=== PATIENT | female | born 1985 | race African-American/Black ===

== ENCOUNTER 2023-01-15 14:00 | Outpatient (CLI) | payer OTHER, SELFPAY ==
[2023-01-15 15:39] LABS: SARS-CoV-2 RNA PCR Negative (Negative)
== END 2023-01-15 14:01 | disposition home or self-care (01) ==
PROVIDERS: PCP Family Medicine; Visit Provider Family Medicine
DX: Z20.822 Contact with and (suspected) exposure to COVID-19 (principal)
CPT/HCPCS: 87635

== ENCOUNTER 2023-04-19 12:03 | Emergency (ER) | payer OTHER, SELFPAY ==
[2023-04-19 12:32] VITALS: BP 142/80; PULSE 91; RESP 20; TEMP 36.3; O2SAT 99
--- NOTE | 2023-04-19 13:23 | ED.URI ---
HPI - URI/Sore Throat General Chief Complaint: Upper Respiratory Infection Stated Complaint: sinus pressure,cough Time Seen by Provider: 04/19/23 12:26 Source: patient Mode of arrival: ambulatory Limitations: no limitations History of Present Illness HPI Narrative: 37-year-old female presents to [facility] with complaints of left-sided sinus pressure, nasal congestion, headache and dry cough for the past 6 weeks. Patient has not tried taking any [id number] medications for symptoms. Patient is a nonsmoker. Patient denies recent travel. Patient's children are currently ill with cold-like symptoms. Patient denies fever, body aches, chills, nausea vomiting, diarrhea, shortness of breath or wheezing. MD elicited complaint: rhinorrhea, nasal congestion and sinus pain Onset (ago): week(s) (6) Able to tolerate fluids by mouth: Yes Exacerbating factors: nothing Relieving factors: nothing Context: sick contacts Treatments prior to arrival: none Related Data Home Medications Medication Instructions Recorded Confirmed sertraline 200 mg capsule 200 mg PO DAILY 01/21/23 04/19/23 sertraline 50 mg tablet 50 mg PO DAILY 01/21/23 04/19/23 trazodone 150 mg tablet 150 mg PO QHS 01/21/23 04/19/23 Allergies Allergy/AdvReac Type Severity Reaction Status Date / Time No Known Allergies Allergy Verified 04/19/23 12:40 Review of Systems Constitutional: Constitutional: Denies fatigue, Denies fever(s) and Denies weakness ENT: Denies dizziness, Denies epistaxis, Reports nasal congestion and Denies sore throat Comments: Sinus pressure Cardiovascular: Cardiovascular: Denies chest pain Respiratory: Respiratory: Reports cough, Denies dyspnea and Denies wheezing Gastrointestinal: Gastrointestinal: Denies diarrhea, Denies nausea and Denies vomiting Neurologic: Denies dizziness, Denies syncope and Reports headache(s) PMFSH Past Medical History Medical History Anxiety Asthma Depression Diabetes mellitus Hx of migraines Morbid obesity Surgical History Surgical History Hx of knee surgery Hx of tonsillectomy Previous section x4 Family History Family History Mother Carcinoma of colon, Onset Age: 50 Other Alcoholism Anxiety Diabetes mellitus Hodgkins disease Ovarian cancer Social History Social History Smoking status: Never smoker Second hand tobacco smoke exposure: No Alcohol intake: never Substance use: never Substance use type: does not use Lack of Transportation: No Lack of Food: Never True Current Housing: I Have Housing Concerned About Future Housing: No Difficulty Paying Gas/Electric Bills: No Difficulty Paying for Meds: No Currently Unemployed: No Education: High School Diploma/GED Difficulty w/ Childcare or Family Care: No Living arrangements: with family Occupation/Education: unemployed Gender identity (if verbalized by the patient): Female Sexual Orientation (if Verbalized by the Patient): Straight or Heterosexual Spiritual care concerns: No Agree to blood products: No Comments At time of signature, I agree with nursing past medical, surgical, social and family history. There is no relevant family history pertinent to the presenting complaint. Exam Const: General: healthy appearing and no acute distress Nutritional Appearance: well nourished Orientation/consciousness: patient oriented x3 Limitations: no limitations HENMT: Head: normal to inspection Ears: external ears normal, TM's normal bilaterally and EAC's normal Face and sinus: sinus tenderness frontal (Left-sided) Throat: posterior oropharynx normal and uvula midline Other: Nasal congestion noted to left Eyes: Conjunctivae: conjunctivae normal Resp: Effo
== END 2023-04-19 13:30 | disposition home or self-care (01) ==
PROVIDERS: Emergency Provider Nurse Practitioner Family; PCP Physician Assistant
DX: J01.90 Acute sinusitis, unspecified (principal); J45.909 Unspecified asthma, uncomplicated; E11.9 Type 2 diabetes mellitus without complications; E66.01 Morbid (severe) obesity due to excess calories; Z68.45 Body mass index [BMI] 70 or greater, adult; F41.9 Anxiety disorder, unspecified; F32.A Depression, unspecified
CPT/HCPCS: 99213; G0463

== ENCOUNTER 2023-04-23 15:49 | Emergency (ER) | payer OTHER, SELFPAY ==
--- NOTE | 2023-04-23 16:38 | ED.URI ---
HPI - URI/Sore Throat General Chief Complaint: Upper Respiratory Infection Stated Complaint: covid exposure Time Seen by Provider: 04/23/23 16:38 Source: patient and family Mode of arrival: ambulatory Limitations: no limitations History of Present Illness HPI Narrative: 37-year-old female With history of asthma, diabetes presents with complaint of cough, nasal congestion, fatigue, fever, body aches, headache for 4 days. Patient states she was here 4 days ago on the 1st day of symptoms starting and was given antibiotic for sinus infection. Patient states her came into day and was tested positive for COVID. Patient Now requesting COVID test. no chest pain or shortness of breath. all systems reviewed and negative except as noted above. Related Data Home Medications Medication Instructions Recorded Confirmed sertraline 200 mg capsule 300 mg PO DAILY 01/21/23 04/23/23 trazodone 150 mg tablet 150 mg PO QHS 01/21/23 04/23/23 Allergies Allergy/AdvReac Type Severity Reaction Status Date / Time No Known Allergies Allergy Verified 04/23/23 16:47 Review of Systems Review of Systems: CONSTITUTIONAL: reports fever, chills, or sweats. EYES: Denies visual changes, redness, or discharge. ENT: Reports rhinorrhea, congestion, sore throat. Denies otalgia. CARDIOVASCULAR: Denies chest pain, palpitations, or edema. RESPIRATORY: Denies cough or dyspnea. GASTROINTESTINAL: Denies abdominal pain, nausea, vomiting, or diarrhea. GENITOURINARY: Denies dysuria or hematuria. SKIN: Denies rash or itching. MUSCULOSKELETAL: Denies back pain, joint pain, or myalgia. NEUROLOGIC: reports headache. Denies numbness, or weakness. PSYCHIATRIC: Denies anxiety or depression. All other systems reviewed are negative, except as documented in HPI. [facility] Past Medical History Medical History Anxiety Asthma Depression Diabetes mellitus Hx of migraines Morbid obesity Surgical History Surgical History Hx of knee surgery Hx of tonsillectomy Previous section x4 Family History Family History Mother Carcinoma of colon, Onset Age: 50 Other Alcoholism Anxiety Diabetes mellitus Hodgkins disease Ovarian cancer Social History Social History Smoking status: Never smoker Second hand tobacco smoke exposure: No Alcohol intake: never Substance use: never Substance use type: does not use Lack of Transportation: No Lack of Food: Never True Current Housing: I Have Housing Concerned About Future Housing: No Difficulty Paying Gas/Electric Bills: No Difficulty Paying for Meds: No Currently Unemployed: No Education: High School Diploma/GED Difficulty w/ Childcare or Family Care: No Living arrangements: with family Occupation/Education: unemployed Gender identity (if verbalized by the patient): Female Sexual Orientation (if Verbalized by the Patient): Straight or Heterosexual Spiritual care concerns: No Agree to blood products: No Comments At time of signature, agree with nursing past medical, surgical, social and family history. There is no relevant family history pertinent to the presenting complaint. Exam Narrative: GENERAL: This is a well-nourished, well-developed patient, in no apparent distress. HEAD: normocephalic, atraumatic. EYES: PERRL. Sclera clear/white. Vision is grossly intact. EARS: External ears normal, auditory canals clear and without drainage, TMs normal without perforation. Hearing grossly intact. NOSE: External nose normal with clear nasal drainage THROAT: Mucous membranes moist, posterior pharynx clear. NECK: Neck supple, non-tender without lymphadenopathy, masses or thyromegaly. CARDIOVASCULAR: Regular rate and rhythm without murmurs, ga
[2023-04-23 16:47] VITALS: BP 128/77; PULSE 95; RESP 20; TEMP 35.9; O2SAT 97
[2023-04-23 16:48] VITALS: BP 128/77; PULSE 95; RESP 20; TEMP 35.9; O2SAT 97
== END 2023-04-23 17:17 | disposition home or self-care (01) ==
PROVIDERS: Emergency Provider Nurse Practitioner Family; PCP Physician Assistant
DX: U07.1 COVID-19 (principal); J45.909 Unspecified asthma, uncomplicated; E11.9 Type 2 diabetes mellitus without complications; E66.01 Morbid (severe) obesity due to excess calories; Z68.45 Body mass index [BMI] 70 or greater, adult; F41.9 Anxiety disorder, unspecified; F32.A Depression, unspecified
CPT/HCPCS: 87426; 99213; C9803; G0463

== ENCOUNTER 2023-07-23 12:53 | Emergency (ER) | payer OTHER, SELFPAY ==
--- NOTE | 2023-07-23 13:02 | ED.FEMALEGU ---
HPI - Female Genitourinary General Chief complaint: Back Pain/Injury Stated complaint: UTI symptoms Time Seen by Provider: 07/23/23 13:23 Source: patient and RN notes reviewed Mode of arrival: ambulatory Limitations: no limitations History of Present Illness HPI Narrative: 37-year-old female presents with concern for bilateral low back pain for 2.5 weeks. She reports dull throbbing back pain. She reports it worsens with certain positioning, she reports ibuprofen dulls the pain. She has been taking ibuprofen about twice daily. She denies weakness to any extremity, loss of bowel or bladder function, perianal anesthesia. She denies frequency, urgency, dysuria. Reports pain is 3/10. She denies fever, body aches, chills, sweats, nausea, vomiting, abdominal pain, diarrhea, constipation. Reports normal periods.. Her last menstrual period was recent. She reports a ?partial? tubal ligation. MD elicited complaint: back pain Related Data Home Medications Medication Instructions Recorded Confirmed dextroamphetamine-amphetamine 10 07/23/23 mg tablet sertraline 100 mg tablet mg 07/23/23 07/23/23 trazodone 150 mg tablet mg 07/23/23 Allergies Allergy/AdvReac Type Severity Reaction Status Date / Time No Known Allergies Allergy Verified 07/23/23 13:10 Review of Systems Review of Systems: CONSTITUTIONAL: Denies malaise, chills, sweats, or fever. CARDIOVASCULAR: Denies chest pain, palpitations, or edema. RESPIRATORY: Denies cough or dyspnea. GASTROINTESTINAL: Denies abdominal pain, nausea, vomiting, diarrhea GENITOURINARY: Reports dysuria, frequency, urgency, suprapubic pressure. Denies flank pain or hematuria. SKIN: Denies rash or itching. MUSCULOSKELETAL: Reports bilateral low back pain. Denies myalgia. All systems reviewed & are unremarkable except as noted in HPI and below PMFSH Past Medical History Medical History Anxiety Asthma Depression Diabetes mellitus Hx of migraines Morbid obesity Surgical History Surgical History Hx of knee surgery Hx of tonsillectomy Previous section x4 Family History Family History Mother Carcinoma of colon, Onset Age: 50 Other Alcoholism Anxiety Diabetes mellitus Hodgkins disease Ovarian cancer Social History Social History Smoking status: Never smoker Second hand tobacco smoke exposure: No Alcohol intake: never Substance use: never Substance use type: does not use Lack of Transportation: No Lack of Food: Never True Current Housing: I Have Housing Concerned About Future Housing: No Difficulty Paying Gas/Electric Bills: No Difficulty Paying for Meds: No Currently Unemployed: No Education: High School Diploma/GED Difficulty w/ Childcare or Family Care: No Living arrangements: with family Occupation/Education: unemployed Gender identity (if verbalized by the patient): Female Sexual Orientation (if Verbalized by the Patient): Straight or Heterosexual Spiritual care concerns: No Agree to blood products: No Comments At time of signature, agree with nursing past medical, surgical, social and family history. There is no relevant family history pertinent to the presenting complaint Exam Narrative: GENERAL: Well-appearing, well-nourished, and in no acute distress. HEAD: Normocephalic, atraumatic. EYES: PERRLA and EOMI. NECK: Supple. No lymphadenopathy. CHEST: Clear to auscultation. No respiratory distress. HEART: Regular rate and rhythm. Distal pulses palpable and equal, cap refill <3 seconds ABDOMEN: Morbidly obese, no CVA tenderness MUSCULOSKELETAL: Reports normal range of motion and strength in all extremities; 5/5 strength with hip flexion and exten
[2023-07-23 13:03] VITALS: BP 129/74; PULSE 82; RESP 18; TEMP 36.7; O2SAT 97
== END 2023-07-23 13:48 | disposition home or self-care (01) ==
PROVIDERS: Emergency Provider Nurse Practitioner; PCP Physician Assistant
DX: N39.0 Urinary tract infection, site not specified (principal); B95.1 Streptococcus, group B, as the cause of diseases classified elsewhere
CPT/HCPCS: 81003; 81025; 87077; 87086; 87088; 99213; G0463

== ENCOUNTER 2023-12-27 09:49 | Emergency (ER) | payer OTHER, SELFPAY ==
--- NOTE | ~2023-12-27 | XR_ITS ---
EXAMINATION: XR chest 1V DATE: 12/27/2023 12:52 INDICATION: Altered mental status. Epigastric abdominal pain. TECHNIQUE: A single frontal view of the chest was obtained. COMPARISON: CT abdomen and pelvis 12/27/2023 FINDINGS: There is no pneumonia, pleural effusion, or pneumothorax. The heart size is normal. IMPRESSION: 1. No acute cardiopulmonary disease. Reviewed, dictated and finalized at location A.
--- NOTE | ~2023-12-27 | CT_ITS ---
EXAMINATION: CT abdomen pelvis w con DATE: 12/27/2023 12:45 INDICATION: Epigastric and umbilical and abdominal pain. TECHNIQUE: Computed tomography (CT) of the abdomen and pelvis was performed with 100 mL Omnipaque-350 intravenous contrast. Automated exposure control and iterative reconstruction technique were employe d. The dose-length product was 1675.60 mGy-cm. COMPARISON: None FINDINGS: Lung bases are clear. Heart size is normal. No pericardial or pleural effusion. Diffuse hepatic steat osis. No intra or extra hepatic biliary ductal dilation. There are multiple gallstones within the nor mal nondilated gallbladder with no pericholecystic inflammatory stranding to suggest acute cholecysti tis. Spleen, pancreas, bilateral adrenal glands and left kidney are normal. 7 mm right renal cyst. Jorden wels including the appendix are normal. Bladder, anteverted uterus and bilateral adnexa are normal. M oderate-sized fat-containing umbilical hernia. No free intraperitoneal gas or fluid. No pathologicall y enlarged abdominal or pelvic lymphadenopathy. 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 IMPRESSION: 1. Cholelithiasis. 2. Diffuse hepatic steatosis. 3. Moderate-sized fat-containing umbilical hernia. Reviewed, dictated and finalized at location A.
--- NOTE | ~2023-12-27 | US_ITS ---
EXAMINATION: US abdomen limited DATE: 12/27/2023 14:44 INDICATION: Cholelithiasis. Epigastric pain. TECHNIQUE: Multiple grayscale and Doppler ultrasound images of the abdomen were obtained. COMPARISON: CT dated 12/27/2023 FINDINGS: The pancreatic head and body are normal in appearance. The pancreatic tail is not visualized. Liver has normal contour, with a smooth surface. There is increased parenchymal echogenicity and coarsened echotexture consistent with diffuse hepatic steatosis. No intrahepatic biliary duct dilation suspecte d. Portal venous flow was seen in the hepatopetal, normal direction and has normal Doppler waveform. There are multiple echogenic and shadowing gallstones in the normal nondilated gallbladder. Sonograph ic Chin sign was reported as negative by the associate professor of mathematics. The common bile duct measures 4 mm trini l diameter which is normal. IMPRESSION: 1. Cholelithiasis. 2. Diffuse hepatic steatosis. Reviewed, dictated and finalized at location A.
[2023-12-27 09:52] VITALS: BP 145/91; PULSE 75; RESP 17; TEMP 36.8; O2SAT 98
--- NOTE | 2023-12-27 09:56 | ECG_ITS ---
Test Date: 2023-12-27 10:01:37 Measurements Intervals [place] Rate: 71 P: 3 IA: 142 QRS: 25 QRSD: 82 T: 6 QT: 391 QTc: 428 Interpretive Statements SINUS RHYTHM NORMAL ECG No previous ECG available for comparison Electronically Signed On 12-27-2023 11:03:00 CDT by Toñito Boyce M.D.
[2023-12-27 10:37] VITALS: O2SAT 100
--- NOTE | 2023-12-27 10:43 | PC.NURSE ---
12/27/23 10:06 - Nurse Note by Sanjuana Vega RN Acct Num: [id number] : 07/08/1956 Patient Age: 67 Pt using aggressive speech with staff, demanding to know pt vital signs, demanding to see pt EKG & insisting staff interpret EKG for him. states Well, my mom is on her way up here and she's a doctor and she knows all of this! RN attempted to deescalate explaining the triage process, due to pt altered status she can not agree to allow us to give out information, when pt gets placed to exam room she will be on a monitor and he will be able to see all vitals. He became angry states I have a right, the pt is right here! Security ask to allow staff to do their job, not to get loud. 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 Initialized on 12/27/23 10:06 - END OF NOTE
[2023-12-27 10:51] VITALS: BP 139/101; PULSE 83; RESP 16; O2SAT 96
[2023-12-27 10:57] LABS: Basophils Percent Auto 0.3 % (0.2-1.2); Eosinophils Percent Auto 0.3 % (0-4.4); Hematocrit 38.4 % (37.0-47.0); Immature Granulocyte Absolute 0.02 K/mm3 (0.00-0.031); Immature Granulocyte Percent A 0.2 % (0-0.5); Lymphocytes Absolute Auto 1.73 K/mm3 (0.9-3.2); Lymphocytes Percent Auto 19.1 % (18.3-44.2); Mean Corpuscular HGB Conc 31.3 g/dl (32-36); Mean Corpuscular Hemoglobin 25.3 pg (26-34); Mean Corpuscular Volume 80.8 fl (80-100); Mean Platelet Volume 9.5 fl (7.4-10.4); Monocytes Absolute Auto 0.3 K/mm3 (0.1-0.6); Monocytes Percent Auto 3.7 % (2.6-8.5); Neutrophils Absolute Auto 6.9 K/mm3 (1.3-6.7); Neutrophils Percent Auto 76.4 % (45.5-73.1); Platelet Count Result 281 k/mm3 (150-375); Red Blood Count 4.75 M/mm3 (4.2-5.4); Red Cell Distribution Width 13.6 % (11.5-14.5); White Blood Count 9.1 K/mm3 (4.5-10.0)
[2023-12-27 11:06] LABS: Alanine Aminotransferase 24 U/L (6-35); Albumin Level 4.2 g/dL (3.5-5.1); Alkaline Phosphatase 113 U/L (38-126); Anion Gap 8 mmol/L (4-12); Aspartate Amino Transferase 27 U/L (14-36); Bilirubin,Total 0.3 mg/dL (0.2-1.3); Blood Urea Nitrogen 12 mg/dL (7-17); Calcium 9.8 mg/dL (8.4-10.2); Carbon Dioxide 30 mmol/L (22-30); Chloride 95 mmol/L (98-107); Estimated CRCL calculation 201 ml/min; Estimated Glomerular Filt Rate > 60; Glucose 239 mg/dL (65-110); Potassium 4.3 mmol/L (3.4-5.0); Sodium 133 mmol/L (137-145)
--- NOTE | 2023-12-27 11:13 | ED.GENADULT ---
HPI - General Adult General Chief complaint: Altered Mental Status Stated complaint: altered mental status Time Seen by Provider: 12/27/23 11:12 Source: patient and family Mode of arrival: ambulatory Limitations: no limitations History of Present Illness HPI narrative: Patient presents with report epigastric abdominal pain starting yesterday. It wraps around both sides of her abdomen like a belt and is also radiating towards her back as well as down into her abdomen/towards umbilicus. No prior history of pancreatitis or issues like this. She has a history of diabetes mellitus on [place]. She states this pain is more intense than the pain she experienced with contractions or epidurals with her childbirth x4. Her last menstrual period was 12/07 and lasted until 12/16. She notes she had a cough this morning and vomited this morning. It is reported that patient had brief moments of loss of consciousness in triage. Patient states that she was feeling so faint and that it hurts to talk. She took ibuprofen last night. She has a history of Caesarean section x4. Does not have GI issues and does not regularly follow with a professor of visual arts. She did have issues with her gallbladder during her 3rd . Related Data Home Medications Medication Instructions Recorded Confirmed dextroamphetamine-amphetamine 10 07/23/23 mg tablet sertraline 100 mg tablet mg 07/23/23 07/23/23 trazodone 150 mg tablet mg 07/23/23 Allergies Allergy/AdvReac Type Severity Reaction Status Date / Time No Known Allergies Allergy Verified 07/23/23 13:10 [facility] Past Medical History Medical History Anxiety Asthma Depression Diabetes mellitus Gallbladder disease affecting Hx of migraines Morbid obesity Surgical History Surgical History Hx of knee surgery Hx of tonsillectomy Previous section x4 Family History Family History Mother Carcinoma of colon, Onset Age: 50 Other Alcoholism Anxiety Diabetes mellitus Hodgkins disease Ovarian cancer Social History Social History Smoking status: Never smoker Second hand tobacco smoke exposure: No Alcohol intake: never Substance use: never Substance use type: does not use Lack of Transportation: No Lack of Food: Never True Current Housing: I Have Housing Concerned About Future Housing: No Difficulty Paying Gas/Electric Bills: No Difficulty Paying for Meds: No Currently Unemployed: No Education: High School Diploma/GED Difficulty w/ Childcare or Family Care: No Living arrangements: with family Occupation/Education: unemployed Gender identity (if verbalized by the patient): Female Sexual Orientation (if Verbalized by the Patient): Straight or Heterosexual Spiritual care concerns: No Agree to blood products: No Exam Narrative: GENERAL: Well-appearing, well-nourished, in mild acute distress, shaking in bed. HEAD: Normocephalic, atraumatic. EYES: Non injected, non icteric ENT: Nares clear, no rhinorrhea or epistaxis. NECK: Supple. CHEST: Speaking in full sentences. No respiratory distress. HEART: Regular rate and rhythm. . ABDOMEN: Soft, protuberant. Morbidly obese. No rigidity/guarding. Not peritoneal. Body habitus limits examination. Chin sign negative EXTREMITIES: Normal range of motion. No lower extremity edema. SKIN: Warm, dry, no rash. NEURO: No focal deficits. Alert and oriented x3. PSYCH: Normal mood and affect. Course Vital Signs Vital signs: Vital Signs Temperature 98.2 F 12/27/23 09:52 Pulse Rate 75 12/27/23 09:52 Respiratory Rate 17 12/27/23 09:52 Blood Pressure 145/91 H 12/27/23 09:52 Pulse Oximetry 98 12/27/23 09:52 Oxygen Delivery Room
[2023-12-27 11:14] LABS: INR 1.1; Prothrombin Time 14.3 Seconds (11.1-14.7)
[2023-12-27 11:15] LABS: Partial Thromboplastin Time 25.9 Seconds (22.3-36.8)
[2023-12-27 11:45] LABS: Lipase 83 U/L (23-300)
[2023-12-27 11:48] LABS: Salicylate < 1.0 mg/dL (2-20)
[2023-12-27 11:51] LABS: Acetaminophen < 10 ug/mL (10-30)
[2023-12-27] MEDS: SODIUM CHLORIDE 0.9% IV 1,000 ML 999 ML IV CONT (11:53)
[2023-12-27] MEDS: ONDANSETRON INJ 4 MG/2 ML VIAL IV PUSH (11:54)
[2023-12-27] MEDS: MORPHINE SULFATE (*CRX) 4 MG/ML INJ IV PUSH ×2 (11:54→13:26)
[2023-12-27 12:02] LABS: Lactic Acid Reflex 2.1 mmol/L (0.7-2.0)
[2023-12-27 12:04] LABS: Beta-Hydroxybutyrate/Acetoacetate 0.13 mmol/L (0.02-0.27)
[2023-12-27 12:08] LABS: SPREG INTERNAL CONTROL Positive; Serum Qual hCG Negative
[2023-12-27 12:26] LABS: Add Urine Microscopic? NO; Appearance Urine Clear (Clear); Bilirubin Urine Negative (Negative); Blood Urine Negative (Negative); Color Urine Yellow (Yellow); Glucose Urine UA 3+ mg/dL (Negative); Ketones Urine Trace mg/dL (Negative); Leukocyte Esterase Ur Negative LEU/UL (Negative); Nitrate Urine Negative (Negative); Protein Urine Negative (Negative); Specific Grav Ur 1.026 (1.001-1.035); Urobilinogen Urine 0.2 mg/dL (<2.0); pH Urine 6.5 (5.0-9.0)
[2023-12-27 12:27] LABS: Influenza A QL RT-PCR Negative (Negative); Influenza B QL RT-PCR Negative (Negative); RSV RNA, RT-PCR Negative (Negative); SARS-CoV-2 RNA PCR Negative (Negative)
[2023-12-27 12:48] LABS: Amphetamine Screen Urine Negative (Negative); Barbiturate Screen Urine Negative (Negative); Benzodiazepines Screen Urine Negative (Negative); Cannabinoid Screen Urine Negative (Negative); Cocaine Screen Urine Negative (Negative); Methadone Screen Urine Negative (Negative); Opiate Screen Urine Positive (Negative); Phencyclidine Screen Urine Negative (Negative)
[2023-12-27 13:25] VITALS: BP 151/93; PULSE 79; RESP 18; TEMP 36.8; O2SAT 96
[2023-12-27] MEDS: MAG HYDROX/AL HYDROX/SIMETH 30 ML UDC PO (14:12)
[2023-12-27] MEDS: FAMOTIDINE 20 MG/2 ML VIAL IV PUSH (14:13)
[2023-12-27 14:49] LABS: Reflex Lactic Acid Yes or No Add Lactic
[2023-12-27 15:27] VITALS: BP 119/77; PULSE 81; RESP 18; TEMP 36.8; O2SAT 97
[2023-12-27 16:25] LABS: Glucose Point of Care 244 mg/dl (65-105)
== END 2023-12-27 15:43 | disposition home or self-care (01) ==
PROVIDERS: Emergency Provider Student in an Organized Health Care Education/Training Program; PCP Family Medicine
DX: K80.20 Calculus of gallbladder without cholecystitis without obstruction (principal); K76.0 Fatty (change of) liver, not elsewhere classified; K42.9 Umbilical hernia without obstruction or gangrene; E11.65 Type 2 diabetes mellitus with hyperglycemia; E66.01 Morbid (severe) obesity due to excess calories; Z68.45 Body mass index [BMI] 70 or greater, adult; R10.13 Epigastric pain; F32.A Depression, unspecified; F41.9 Anxiety disorder, unspecified; Z79.85 Long-term (current) use of injectable non-insulin antidiabetic drugs; Z79.899 Other long term (current) drug therapy
CPT/HCPCS: 36415; 71045; 74177; 76705; 80053; 80307; 81003; 82010; 82948; 83605; 83690; 84703; 85025; 85610; 85730; 87637; 93005; 96361; 96374; 96375; 96376; 99284; A9270; J2270; J2405; J7030; Q9967

== ENCOUNTER 2024-01-04 08:05 | Emergency (ER) | payer OTHER, SELFPAY ==
[2024-01-04 08:34] VITALS: BP 139/78; PULSE 83; RESP 18; TEMP 36.4; O2SAT 97
--- NOTE | 2024-01-04 08:45 | ED.URI ---
HPI - URI/Sore Throat General Chief Complaint: Upper Respiratory Infection Stated Complaint: covid symptoms Time Seen by Provider: 01/04/24 08:46 Source: patient, RN notes reviewed and old records reviewed Mode of arrival: ambulatory Limitations: no limitations History of Present Illness HPI Narrative: 38-year-old female presents to the [facility] with concerns for strep, flu, COVID-19. Patient states that yesterday afternoon she started with some sinus congestion, dry feeling in her nasal passage, runny nose, postnasal drainage and a cough. Patient also reports that she feels chilled and is having hot flashes. She is only taking Tylenol 1 time yesterday. Related Data Home Medications Medication Instructions Recorded Confirmed dextroamphetamine-amphetamine 10 10 mg PO DAILY 07/23/23 01/04/24 mg tablet sertraline 100 mg tablet 100 mg PO DAILY 07/23/23 01/04/24 trazodone 150 mg tablet 150 mg PO HS 07/23/23 01/04/24 Allergies Allergy/AdvReac Type Severity Reaction Status Date / Time No Known Allergies Allergy Verified 01/04/24 08:29 Review of Systems Review of Systems: All systems reviewed & are unremarkable except as noted in HPI and below Constitutional: Constitutional: Reports as per HPI, Reports body ache(s), Reports chills and Reports fatigue Eyes: Eyes: Reports no additional eye complaints ENT: Reports as per HPI, Reports nasal congestion, Reports nasal discharge and Reports sore throat Cardiovascular: Cardiovascular: Reports no additional cardiovascular complaints, Denies chest pain and Denies dyspnea Respiratory: Respiratory: Reports as per HPI, Denies chest congestion, Reports cough and Denies dyspnea Gastrointestinal: Gastrointestinal: Reports no additional gastrointestinal complaints, Denies abdominal pain, Denies nausea and Denies vomiting Musculoskeletal: Musculoskeletal: Reports no additional musculoskeletal complaints Integumentary/Breasts: Skin/Breast: Reports system reviewed and no additional complaints, except as docu Neurologic: Reports system reviewed and no additional complaints, except as documented Psychiatric: Psychiatric: Reports no additional psychiatric complaints Allergic/Immunologic: Allergic/Immunologic: Reports no additional allergic/immunologic complaints PMFSH Past Medical History Medical History Anxiety Asthma Depression Diabetes mellitus Gallbladder disease affecting Hx of migraines Morbid obesity Surgical History Surgical History Hx of knee surgery Hx of tonsillectomy Previous section x4 Family History Family History Mother Carcinoma of colon, Onset Age: 50 Other Alcoholism Anxiety Diabetes mellitus Hodgkins disease Ovarian cancer Social History Social History Smoking status: Never smoker Second hand tobacco smoke exposure: No Alcohol intake: never Substance use: never Substance use type: does not use Lack of Transportation: No Lack of Food: Never True Current Housing: I Have Housing Concerned About Future Housing: No Difficulty Paying Gas/Electric Bills: No Difficulty Paying for Meds: No Currently Unemployed: No Education: High School Diploma/GED Difficulty w/ Childcare or Family Care: No Living arrangements: with family Occupation/Education: unemployed Gender identity (if verbalized by the patient): Female Sexual Orientation (if Verbalized by the Patient): Straight or Heterosexual Spiritual care concerns: No Agree to blood products: No Comments At the time of my signature, I reviewed and agree with the nursing past medical, surgical, social, and family history. There is no relevant family history pertinent to the patient complaint. Exam Const: General: coop
[2024-01-04 09:19] LABS: EDSTREPNEGPOS1 Negative
[2024-01-05 07:43] LABS: EDINFLUASCREEN NEGATIVE
[2024-01-05 07:44] LABS: EDINFLUBSCREEN NEGATIVE
== END 2024-01-04 09:02 | disposition home or self-care (01) ==
PROVIDERS: Emergency Provider Nurse Practitioner; PCP Family Medicine
DX: R09.82 Postnasal drip (principal); J06.9 Acute upper respiratory infection, unspecified; Z20.822 Contact with and (suspected) exposure to COVID-19; J45.909 Unspecified asthma, uncomplicated; E11.9 Type 2 diabetes mellitus without complications; E66.01 Morbid (severe) obesity due to excess calories; Z68.45 Body mass index [BMI] 70 or greater, adult; F41.9 Anxiety disorder, unspecified; F32.A Depression, unspecified
CPT/HCPCS: 87081; 87426; 87804; 87880; 99213; G0463

== ENCOUNTER 2024-06-19 08:29 | Emergency (ER) | payer OTHER, SELFPAY ==
[2024-06-19 08:39] VITALS: BP 168/79; PULSE 89; RESP 18; TEMP 36.6; O2SAT 99
--- OUTSIDE RECORDS SUMMARY | 2024-06-19 08:39 | XMS_ITS | Clinical Summary ---
Author Organization [facility] Address [address] [place] [address] Care Team Providers Care Political Cartoonist Name Role Phone Fei Rajan DO Primary Care Provider Jamin Manley MD Unavailable Unavailabl e Medications amphetamine-dex troamphetamine (ADDERALL) 10 MG tablet Take 10 mg by mouth 2 (two) times daily. Active traZODone (DESYREL) 150 MG tablet Take 150 mg by mouth nightly at bedtime. Active traZODone (DESYREL) 50 MG tabletIndicatio ns:in addition to 150 mg tab for total dose of 175 mg qhs. Take 25 mg by mouth nightly at bedtime. Indications: in addition to 150 mg tab for total dose of 175 mg qhs. Active Family History Medical History Relation Comments Cancer Mother Diabetes Mother Hypertension Mother Kidney failure Mother Thyroid Disease Mother Relation Status Comments Mother Social History Tobacco Use Types Packs/Day Years Used Date Smoking Tobacco: Never Alcohol Use Standard Drinks/Week Comments Not Currently 0 (1 standard drink = 0.6 oz pur e alcohol) Comments Unknown Sex and Gender Information Value Date Recorded Sex Assigned at Not on file Legal Sex Female 11:19 PM CIVIL ENGINEERING PROJECT MANAGER Gender Identity Not on file Sexual Orientation Not on file Last Filed Vital Signs Vital Sign Reading Time Taken Comments Blood Pressure 142/90 02/21/2018 8:27 AM CDT Pulse - - Temperature - - Respiratory Rate - - Oxygen Saturation - - Inhaled Oxygen Concentration - - Weight 147.4 kg (325 lb) 06/17/2018 4:44 PM CIVIL ENGINEERING PROJECT MANAGER Height 152.4 cm (5') 06/17/2018 4:44 PM CIVIL ENGINEERING PROJECT MANAGER Body Mass Index 63.47 06/17/2018 4:44 PM CIVIL ENGINEERING PROJECT MANAGER Plan of Treatment Health Maintenance Due Date Last Done Comments Cervical Cancer Screening Pa p Smear (Age 30 to 64) Every 3 Years 1984 Annual Physical 11/07/1987 Hepatitis C 2002 DTaP, Tdap and Td Vaccines ( 1 - Tdap) 11/07/2003 Hepatitis B Vaccines (1 of 3 - 19+ 3-dose series) 11/07/2003 Cervical Cancer Screening Pa p with HPV Testing (Age 30 to 64) Every 5 Years 2014 Cervical Cancer Screening wi th HPV 2014 COVID-19 Vaccine (2023-2 5 season) 2024 08/14/2020, 07/16/2020 Influenza Adult (#1) 2024 HPV Vaccines Aged Out No longer eligi ble based on patient's age to complete this topic Meningococcal B Vaccine Aged Out No l onger eligible based on patient's age to complete this topic Meningococcal Vaccine Aged Out No [place] eligible based on patient's age to complete this topic Pneumococcal Vaccine: Pediatrics (0 to 5 Years) and At-Risk Patients (6 to 64 Years) Aged Out No longer eligible b ased on patient's age to complete this topic RSV Immunizations Under 20 Months Aged Out No longer eligible b ased on patient's age to complete this topic Insurance AET Care Teams Political Cartoonist Relationship Specialty Start Date End Date Fei Rajan DO [address] [place] [address] PCP - General INTERNAL MEDICINE 03/02/22 Jamin Manley MD [address] [place] [address] Consulting Physician CARDIOVASCULAR DISEASE 03/02/22
--- OUTSIDE RECORDS SUMMARY | 2024-06-19 08:40 | XMS_ITS | Clinical Summary ---
Author Organization [facility] Address [address] [place] [address] Care Team Providers Care Fisher Trap Name Role Phone Becka Choudhury MD Primary Care Provider [phone] Allergies No known active allergies Social History Tobacco Use Types Packs/Day Years Used Date Smoking Tobacco: Never Assessed Personal Safety Answer Date Recorded Have you ever been in or are you currently in a harmful physical or emotional relationship or is someone making you feel afraid or unsafe? Denies 03/22/2023 Comments Unknown Sex and Gender Information Value Date Recorded Sex Assigned at Not on file Legal Sex Female 8:57 AM SILK BRUSHER Gender Identity Not on file Sexual Orientation Not on file Last Filed Vital Signs Vital Sign Reading Time Taken Comments Blood Pressure 132/87 03/22/2023 8:50 PM SILK BRUSHER Pulse 76 03/22/2023 8:50 PM SILK BRUSHER Temperature 37 C (98.6 F) 03/22/2023 5:51 PM SILK BRUSHER Respiratory Rate 18 03/22/2023 8:50 PM SILK BRUSHER Oxygen Saturation 98% 03/22/2023 8:50 PM SILK BRUSHER Inhaled Oxygen Concentration - - Weight 177.2 kg (390 lb 10.5 oz) 03/22/2023 5:51 PM SILK BRUSHER Height - - Body Mass Index - - Plan of Treatment Health Maintenance Due Date Last Done Comments Cervical Cancer Screening 1984 Depression Screening 1984 Hepatitis C Screening 1984 DTaP/Tdap/Td Vaccine (1 - Tdap) 11/07/1995 Varicella Vaccines (1 of 2 - 13+ 2-dose series) 1997 Hepatitis B Screening 2002 Regular Well Visit/Exam 18-64 2002 Covid-19 Vaccine (3 - 2024-2 5 season) 2024 08/14/2020, 07/16/2020 Influenza Vaccine (#1) 2024 HPV Vaccines Aged Out No longer eligi ble based on patient's age to complete this topic Pneumococcal vaccine <65 Aged Out No longer eligible based on patient's age to complete this topic Insurance AETNA [facility] [id number] Care Teams Fisher Trap Relationship Specialty Start Date End Date Becka Choudhury MD PCP - General Family Medicine 03/22/23
--- OUTSIDE RECORDS SUMMARY | 2024-06-19 08:40 | XMS_ITS | Referral Summary ---
Author Organization [facility] Address [address] [place] [address] Care Team Providers Care Business Process Expert Name Role Phone Becka Choudhury MD Primary Care Provider [phone] Allergies No known active allergies Social History [...] on file Legal Sex Female 8:57 AM TOBACCO CONDITIONER Gender Identity Not on file Sexual Orientation Not on file Last Filed Vital Signs Vital Sign Reading Time Taken Comments Blood Pressure 132/87 03/22/2023 8:50 PM TOBACCO CONDITIONER Pulse 76 03/22/2023 8:50 PM TOBACCO CONDITIONER Temperature 37 C (98.6 F) 03/22/2023 5:51 PM TOBACCO CONDITIONER Respiratory Rate 18 03/22/2023 8:50 PM TOBACCO CONDITIONER Oxygen Saturation 98% 03/22/2023 8:50 PM TOBACCO CONDITIONER Inhaled Oxygen Concentration - - Weight 177.2 kg (390 lb 10.5 oz) 03/22/2023 5:51 PM TOBACCO CONDITIONER Height - - Body Mass Index - - Plan of Treatment Not on file Insurance AETNA [facility] [id number] Care Teams Business Process Expert Relationship Specialty Start Date End Date Becka Choudhury MD PCP - General Family Medicine 03/22/23
--- NOTE | 2024-06-19 09:15 | ED_ITS ---
HPI - URI/Sore Throat General Chief Complaint: Upper Respiratory Infection Stated Complaint: flu or Covid Time Seen by Provider: 06/19/24 09:16 Source: patient Mode of arrival: ambulatory Limitations: no limitations History of Present Illness HPI Narrative: 38-year-old female presents with complaint of cough, chest congestion, fatigue for 1 day. Afebrile. Patient reports that both of her children tested positive for a coronavirus strain at [facility] last week. No chest pain or shortness of breath. Taking DayQuil to treat symptoms. All Systems reviewed and negative except as noted above. Related Data Home Medications ?Medication ?Instructions ?Recorded ?Confirmed ?Last Taken ?Type dextroamphetamine-amphetamine 10 10 mg PO DAILY 07/23/23 01/04/24 Unknown History mg tablet sertraline 100 mg tablet 100 mg PO DAILY 07/23/23 01/04/24 Unknown History trazodone 150 mg tablet 150 mg PO HS 07/23/23 01/04/24 Unknown History Allergies Allergy/AdvReac Type Severity Reaction Status Date / Time No Known Allergies Allergy Verified 06/19/24 08:49 Review of Systems Review of Systems: CONSTITUTIONAL: Denies fever, chills, or sweats. reports fatigue. EYES: Denies visual changes, redness, or discharge. ENT: reports rhinorrhea, congestion. Denies sore throat, or otalgia. CARDIOVASCULAR: Denies chest pain, palpitations, or edema. RESPIRATORY: Reports cough. Denies dyspnea. GASTROINTESTINAL: Denies abdominal pain, nausea, vomiting, or diarrhea. GENITOURINARY: Denies dysuria or hematuria. SKIN: Denies rash or itching. MUSCULOSKELETAL: Denies back pain, joint pain, or myalgia. NEUROLOGIC: Denies headache, numbness, or weakness. PSYCHIATRIC: Denies anxiety or depression. All other systems reviewed are negative, except as documented in HPI. [facility] Past Medical History Medical History Anxiety Asthma Depression Diabetes mellitus Gallbladder disease affecting Hx of migraines Morbid obesity Surgical History Surgical History Hx of knee surgery Hx of tonsillectomy Previous section x4 Family History Family History Mother Carcinoma of colon, Onset Age: 50 Other Alcoholism Anxiety Diabetes mellitus Hodgkins disease Ovarian cancer Social History Social History Smoking status: Never smoker Second hand tobacco smoke exposure: No Alcohol intake: never Substance use: never Substance use type: does not use Lack of Transportation: No Lack of Food: Never True Current Housing: I Have Housing Concerned About Future Housing: No Difficulty Paying Gas/Electric Bills: No Difficulty Paying for Meds: No Currently Unemployed: No Education: High School Diploma/GED Difficulty w/ Childcare or Family Care: No Living arrangements: with family Occupation/Education: unemployed Gender identity (if verbalized by the patient): Female Sexual Orientation (if Verbalized by the Patient): Straight or Heterosexual Spiritual care concerns: No Agree to blood products: No Comments At time of signature, agree with nursing past medical, surgical, social and family history. There is no relevant family history pertinent to the presenting complaint. Exam Narrative: GENERAL: This is a well-nourished, well-developed patient, in no apparent distress. HEAD: normocephalic, atraumatic. EYES: PERRL. Sclera clear/white. Vision is grossly intact. EARS: External ears normal, auditory canals clear and without drainage, TMs normal without perforation. Hearing grossly intact. NOSE: External nose normal with mild congestion, clear nasal drainage THROAT: Mucous membranes moist, posterior pharynx clear. NECK: Neck supple, non-tender without lymphadenopathy, masses or thyromegaly. CARDIOVASCULAR: Regular rate and rhythm without murmurs, gallops, or rubs. RESPIRATORY: Clear to auscultation. Breath sounds equal bilaterally. No wheezes, rales, or rhonchi. SKIN: warm, Dry, intact with no suspicious lesions or rash, good texture and turgor. NEURO: awake, alert, and oriented to person, place and time. There were no obvious focal neurologic abnormalities. EXTREMITIES: No joint tenderness, effusion, or edema noted. Course Course Level of Care: Express Care Visit Vital Signs Vital signs: Vital Signs Temperature 36.6 C 06/19/24 08:39 Pulse Rate 89 06/19/24 08:39 Respiratory Rate 18 06/19/24 08:39 Blood Pressure 168/79 H 06/19/24 08:39 Pulse Oximetry 99 06/19/24 08:39 Oxygen Delivery Room Air 06/19/24 08:39 Temperature 36.6 C 06/19/24 08:39 Pulse Rate 89 06/19/24 08:39 Respiratory Rate 18 06/19/24 08:39 Blood Pressure 168/79 H 06/19/24 08:39 Pulse Oximetry 99 06/19/24 08:39 Oxygen Delivery Room Air 06/19/24 08:39 reviewed MDM - URI/Sore Throat MDM Narrative Medical decision making narrative: negative COVID and influenza. Patient is well-appearing, nontoxic. Lungs clear to auscultation. Recommend continue [id number] medications to treat symptoms. Please be advised this is a medical document. It is intended for [id number] communication. It is written in medical language and may contain unfamiliar abbreviations or verbiage. Medical documents are intended to carry relevant in formation, facts as evident, and the clinical opinion of the practitioner at the time of the encounter. This report may have been done utilizing a voice recognition system. Attempts have been made to correct errors. However, there may be uncorrected grammatical, spelling, and recognition errors present. The file time of this note does not necessarily represent the time of service. Differential Diagnosis Differential diagnosis: Likely upper respiratory infection, sinusitis, viral infection, influenza and other ( COVID-19) Lab Data Labs: Lab Results 06/19/24 Range/Units 09:15 POC Influenza A Ag Negative (Negative) POC Influenza B Ag Negative (Negative) POC SARS CoV-2 Ag Negative (Negative) Discharge Plan Discharge Clinical Impression: Viral upper respiratory tract infection with cough Patient Disposition: Home, Self-Care Condition: Stable Instructions: Upper Respiratory Infection (ED) Additional Instructions: your COVID and influenza test was negative today. Your symptoms are viral and may last 10-14 days. take medication as prescribed. Drink at least 64 oz of water a day. Follow-up with your doctor if symptoms are not improving. Patient Language: Uruguayan Prescriptions: New benzonatate 200 mg capsule 200 mg PO TID PRN (Reason: cough) Qty: 20 0RF No Action dextroamphetamine-amphetamine 10 mg tablet 10 mg PO DAILY sertraline 100 mg tablet 100 mg PO DAILY trazodone 150 mg tablet 150 mg PO HS omeprazole 20 mg tablet,delayed release (DR/EC) 20 mg PO DAILY Qty: 30 0RF Follow-up/Referrals: Becka Choudhury MD [Primary Care Provider] - Time of Disposition: 09:22
[2024-06-19 09:17] LABS: EDCOVIDSCREEN Negative (Negative); EDINFLUASCREEN Negative (Negative); EDINFLUBSCREEN Negative (Negative)
== END 2024-06-19 09:28 | disposition home or self-care (01) ==
PROVIDERS: Emergency Provider Nurse Practitioner Family; PCP Family Medicine
DX: J06.9 Acute upper respiratory infection, unspecified (principal); R05.9 Cough, unspecified; Z20.822 Contact with and (suspected) exposure to COVID-19; J45.909 Unspecified asthma, uncomplicated; E11.9 Type 2 diabetes mellitus without complications; E66.01 Morbid (severe) obesity due to excess calories; F41.9 Anxiety disorder, unspecified; F32.A Depression, unspecified; Z68.45 Body mass index [BMI] 70 or greater, adult
CPT/HCPCS: 87426; 87804; 99213; G0463

== ENCOUNTER 2025-01-01 08:36 | Emergency (ER) | payer OTHER, SELFPAY ==
[2025-01-01 08:41] VITALS: BP 138/87; PULSE 85; RESP 16; TEMP 36.1; O2SAT 99
--- NOTE | 2025-01-01 08:48 | ED.URI ---
HPI - URI/Sore Throat General Chief Complaint: Upper Respiratory Infection Stated Complaint: sore throat,cough,body ache Source: patient and RN notes reviewed Mode of arrival: ambulatory Limitations: no limitations History of Present Illness HPI Narrative: Patient is a 39-year-old female who presents to the [facility] with complaints of sore throat, congestion, and cough. Patient states that she developed a sore throat on that was present at her day. She states that she woke up yesterday and the sore throat is gone but she developed congestion and a frequent nonproductive cough. She denies shortness of breath or chest pain. Denies recent fever. Unsure of any known sick contacts. Related Data Home Medications ?Medication ?Instructions ?Recorded ?Confirmed ?Last Taken ?Type dextroamphetamine-amphetamine 10 10 mg PO DAILY 07/23/23 01/04/24 Unknown History mg tablet trazodone 150 mg tablet 150 mg PO HS 07/23/23 01/04/24 Unknown History Allergies Allergy/AdvReac Type Severity Reaction Status Date / Time No Known Allergies Allergy Verified 01/01/25 08:57 Review of Systems Review of Systems: CONSTITUTIONAL: Denies fever, chills, or sweats. EYES: Denies visual changes, redness, or discharge. ENT: Denies otalgia but reports sore throat. CARDIOVASCULAR: Denies chest pain, palpitations, or edema. RESPIRATORY: Reports cough but denies dyspnea. GASTROINTESTINAL: Denies abdominal pain, nausea, vomiting, or diarrhea. GENITOURINARY: Denies dysuria or hematuria. SKIN: Denies rash or itching. MUSCULOSKELETAL: Denies back pain, joint pain, or myalgia. NEUROLOGIC: Denies headache, numbness, or weakness. Pertinent positives per HPI. [facility] Past Medical History Medical History Gallbladder disease affecting Anxiety Depression Morbid obesity Hx of migraines Diabetes mellitus Asthma Surgical History Surgical History Previous section x4 Hx of tonsillectomy Hx of knee surgery Family History Family History Mother Carcinoma of colon, Onset Age: 50 Other Alcoholism Anxiety Diabetes mellitus Hodgkins disease Ovarian cancer Social History Social History Smoking status: Never smoker Second hand tobacco smoke exposure: No Alcohol intake: never Substance use: never Substance use type: does not use Lack of Transportation: No Lack of Food: Never True Current Housing: I Have Housing Concerned About Future Housing: No Difficulty Paying Gas/Electric Bills: No Difficulty Paying for Meds: No Currently Unemployed: No Education: High School Diploma/GED Difficulty w/ Childcare or Family Care: No Living arrangements: with family Occupation/Education: unemployed Gender identity (if verbalized by the patient): Female Sexual Orientation (if Verbalized by the Patient): Straight or Heterosexual Spiritual care concerns: No Agree to blood products: No Comments At the time of my signature, I reviewed and agree with the nursing past medical, surgical, social, and family history. There is no relevant family history pertinent to the patient complaint. Exam Narrative: GENERAL: This is a well-nourished, well-developed patient, in no apparent distress. HEAD: normocephalic, atraumatic. EYES: Sclera clear/white. Vision is grossly intact. EARS: External ears normal. Hearing grossly intact. NOSE: External nose normal with no obvious nasal discharge, nares without redness, no rhinorrhea. THROAT: Mucous membranes moist, posterior pharynx clear. NECK: Neck supple, non-tender without lymphadenopathy, masses or thyromegaly. CARDIOVASCULAR: Regular rate and rhythm without murmurs, gallops, or rubs. RESPIRATORY: Clear to auscultation. Breath sounds equal bilaterally. No wheezes, rales, or rhonchi. GASTROINTESTINAL: Abdomen soft, non-tender, nondistended. Bowel sounds are active. No hepato-splenomegaly, or palpable masses. No guarding. SKIN: warm, intact with no suspicious lesions or rash, good texture and turgor. NEURO: awake, alert, and oriented to person, place and time. There were no obvious focal neurologic abnormalities. Course Course Level of Care: Express Care Visit Vital Signs Vital signs: Vital Signs Temperature 97.0 F L 01/01/25 08:41 Pulse Rate 85 01/01/25 08:41 Respiratory Rate 16 01/01/25 08:41 Blood Pressure 138/87 01/01/25 08:41 Pulse Oximetry 99 01/01/25 08:41 Oxygen Delivery Room Air 01/01/25 08:41 Temperature 97.0 F L 01/01/25 08:41 Pulse Rate 85 01/01/25 08:41 Respiratory Rate 16 01/01/25 08:41 Blood Pressure 138/87 01/01/25 08:41 Pulse Oximetry 99 01/01/25 08:41 Oxygen Delivery Room Air 01/01/25 08:41 Reviewed MDM - URI/Sore Throat MDM Narrative Medical decision making narrative: Viral illness may last between 7-21 days; antibiotics do not cure viral illness and are NOT recommended at this time. Also, recommend symptomatic treatment includes: rest, fluids, and increase humidity of the air at home. Recommend Acetaminophen as directed on the bottle to reduce fever, pain, headache. Please schedule a follow-up visit with your personal physician for further evaluation and treatment within 3-5days. If your symptoms persist, change or worsen significantly before you can contact your personal physician then please, without delay, go to the emergency department for further evaluation. Differential Diagnosis Differential diagnosis: Likely upper respiratory infection, viral infection, influenza and other (strep, covid) Lab Data Attestation: I reviewed the patient's lab results. Critical Care Time Critical Care Time Critical Care Time: No Discharge Plan Discharge Clinical Impression: Viral illness Patient Disposition: Home Condition: Stable Additional Instructions: Viral illness may last between 7-21 days; antibiotics do not cure viral illness and are NOT recommended at this time. Also, recommend symptomatic treatment includes: rest, fluids, and increase humidity of the air at home. Recommend Acetaminophen as directed on the bottle to reduce fever, pain, headache. Please schedule a follow-up visit with your personal physician for further evaluation and treatment within 3-5days. If your symptoms persist, change or worsen significantly before you can contact your personal physician then please, without delay, go to the emergency department for further evaluation. Patient Language: Greenlandic Prescriptions: No Action dextroamphetamine-amphetamine 10 mg tablet 10 mg PO DAILY trazodone 150 mg tablet 150 mg PO HS benzonatate 200 mg capsule 200 mg PO TID PRN (Reason: cough) Qty: 20 0RF omeprazole 20 mg tablet,delayed release (DR/EC) 20 mg PO DAILY Qty: 30 0RF (DME) lancing device with lancets [Interactive Supercomputinguch Delica Plus Lanc Dev] Kit See Rx Instructions .Route Qty: 1 0RF Rx Instructions: As directed daily (DME) lancets [OneTouch Delica Plus Lancet] 33 gauge misc See Rx Instructions .Route Qty: 100 12RF Rx Instructions: As directed delica (DME) blood-glucose meter [OneTouch Verio Flex meter] [facility] See Rx Instructions .Route Qty: 1 0RF Rx Instructions: As directed daily (DME) OneTouch Verio test strips Strip See Rx Instructions .Route Qty: 100 12RF Rx Instructions: Use daily sertraline 100 mg tablet 100 mg PO DAILY Qty: 90 0RF Follow-up/Referrals: Becka Choudhury MD [Primary Care Provider, Family Practice] Time of Disposition: 09:09
--- OUTSIDE RECORDS SUMMARY | 2025-01-01 08:51 | XMS_ITS | Clinical Summary ---
Author Organization [facility] Address [address] [place] [address] Care Team Providers Care Net C Developer Name Role Phone Becka Choudhury MD Primary Care Provider [phone] Allergies No known active allergies Social History [...] on file Legal Sex Female 8:57 AM TITLE ABSTRACTOR Gender Identity Not on file Sexual Orientation Not on file Last Filed Vital Signs Vital Sign Reading Time Taken Comments Blood Pressure 132/87 03/22/2023 8:50 PM TITLE ABSTRACTOR Pulse 76 03/22/2023 8:50 PM TITLE ABSTRACTOR Temperature 37 C (98.6 F) 03/22/2023 5:51 PM TITLE ABSTRACTOR Respiratory Rate 18 03/22/2023 8:50 PM TITLE ABSTRACTOR Oxygen Saturation 98% 03/22/2023 8:50 PM TITLE ABSTRACTOR Inhaled Oxygen Concentration - - Weight 177.2 kg (390 lb 10.5 oz) 03/22/2023 5:51 PM TITLE ABSTRACTOR Height - - Body Mass Index - - Plan of Treatment Health Maintenance Due Date Last Done Comments Breast Cancer Screening-Mammogram 1984 Cervical Cancer Screening 1984 Depression Screening 1984 Hepatitis C Screening 1984 DTaP/Tdap/Td Vaccine (1 - Tdap) 11/07/1995 Varicella Vaccines (1 of 2 - 13+ 2-dose series) 1997 Hepatitis B Screening 2002 Regular Well Visit/Exam 18-64 2002 HPV Vaccines (1 - 3-dose SCD M series) 11/07/2011 Covid-19 Vaccine (3 - 2023-2 5 season) 2024 08/14/2020, 07/16/2020 Influenza Vaccine (#1) 2025 Pneumococcal vaccine <65 Aged Out No longer eligible based on patient's age to complete this topic Insurance [facility]ETNA [facility] [id number] Care Teams Net C Developer Relationship Specialty Start Date End Date Becka Choudhury MD [phone] (work) PCP - General Family Medicine 03/22/23
--- OUTSIDE RECORDS SUMMARY | 2025-01-01 08:52 | XMS_ITS | Clinical Summary ---
Author Organization [facility] Address [address] [place] [address] Care Team Providers Care Financial Director Name Role Phone Fei Rajan DO Primary Care Provider Unavailable Jamin Manley MD Unavailable Unavailabl e Medications [...] on file Legal Sex Female 11:19 PM SECOND HELPER Gender Identity Not on file Sexual Orientation Not on file Last Filed Vital Signs Vital Sign Reading Time Taken Comments Blood Pressure 142/90 02/21/2018 8:27 AM CDT Pulse - - Temperature - - Respiratory Rate - - Oxygen Saturation - - Inhaled Oxygen Concentration - - Weight 147.4 kg (325 lb) 06/17/2018 4:44 PM SECOND HELPER Height 152.4 cm (5') 06/17/2018 4:44 PM SECOND HELPER Body Mass Index 63.47 06/17/2018 4:44 PM SECOND HELPER Plan of Treatment Health Maintenance Due Date Last Done Comments Cervical Cancer Screening Pa p Smear (Age 30 to 64) Every 3 Years 1984 Annual Physical 11/07/1987 Hepatitis C 2002 DTaP, Tdap and Td Vaccines ( 1 - Tdap) 11/07/2003 Hepatitis B Vaccines (1 of 3 - 19+ 3-dose series) 11/07/2003 HPV Vaccines (1 - 3-dose SCD M series) 11/07/2011 Cervical Cancer Screening Pa p with HPV Testing (Age 30 to 64) Every 5 Years 2014 Cervical Cancer Screening wi th HPV 2014 COVID-19 Vaccine (3 - 2023-2 5 season) 2024 08/14/2020, 07/16/2020 Mammogram Screening 2024 Meningococcal B Vaccine Aged Out No l onger eligible based on patient's age to complete this topic Meningococcal Vaccine Aged Out No [place] eligible based on patient's age to complete this topic Pneumococcal Vaccine: Pediatrics (0 to 5 Years) and At-Risk Patients (6 to 49 Years) Aged Out No longer eligible b ased on patient's age to complete this topic RSV Immunizations Under 20 Months Aged Out No longer eligible b ased on patient's age to complete this topic Insurance AET Care Teams Financial Director Relationship Specialty Start Date End Date Fei Rajan DO PCP - General INTERNAL MEDICINE 03/02/22 Jamin Manley MD Consulting Physician CARDIOVASCULAR DISEASE 03/02/22
[2025-01-01 09:09] LABS: EDCOVIDSCREEN Negative (Negative); EDINFLUASCREEN Negative (Negative); EDINFLUBSCREEN Negative (Negative); EDSTREPNEGPOS1 Negative (Negative)
== END 2025-01-01 09:15 | disposition home or self-care (01) ==
PROVIDERS: Emergency Provider Nurse Practitioner; PCP Family Medicine
DX: B34.9 Viral infection, unspecified (principal); Z20.822 Contact with and (suspected) exposure to COVID-19; E11.9 Type 2 diabetes mellitus without complications; J45.909 Unspecified asthma, uncomplicated; Z68.45 Body mass index [BMI] 70 or greater, adult; E66.01 Morbid (severe) obesity due to excess calories; F41.9 Anxiety disorder, unspecified; F32.A Depression, unspecified
CPT/HCPCS: 87081; 87426; 87804; 87880; 99213; G0463